=== PATIENT | male | born 1965 | race Caucasian/White ===

== ENCOUNTER 2018-04-13 10:58 | Inpatient (IN) | payer OTHER ==
[2018-04-13] MEDS ORDERED: SOD CHLORIDE 0.9% 1,000 ML IV (11:56)
[2018-04-13 12:22] LABS: ADD MAN DIFF? NO
[2018-04-13 12:24] LABS: BASOPHIL # 0.1 10^3/ul (0.0-0.1); BASOPHILS % 0.3 % (0.0-2.0); HEMATOCRIT 45.8 % (42.0-52.0); HEMOGLOBIN 14.6 g/dl (14.0-18.0); LYMPHOCYTES # 1.6 10^3/ul (0.8-2.9); LYMPHOCYTES % 8.8 % (15.0-51.0); MEAN CORPUSCULAR HEMOGLOBIN 30.7 pg (29.0-33.0); MEAN CORPUSCULAR HGB CONC 31.9 g/dl (32.0-37.0); MEAN CORPUSCULAR VOLUME 96.2 fl (82.0-101.0); MEAN PLATELET VOLUME 9.9 fl (7.4-10.4); MONOCYTE # 0.5 10^3/ul (0.3-0.9); MONOCYTES % 2.7 % (0.0-11.0); NEUTROPHIL # 15.6 10^3/ul (1.6-7.5); NEUTROPHILS % 87.8 % (39.0-77.0); PLATELET COUNT 175 10^3/UL (140-415); RED BLOOD COUNT 4.76 10^6/ul (4.70-6.10); RED CELL DISTRIBUTION WIDTH 13.2 % (11.5-14.5)
[2018-04-13 12:24] LABS: WHITE BLOOD COUNT 17.8 10^3/ul (4.8-10.8)
[2018-04-13] MEDS: ONDANSETRON 4 MG INJ IV (12:26)
[2018-04-13] MEDS: SODIUM CHLORIDE 0.9% 1L BAG IV* (12:26)
[2018-04-13 12:43] LABS: ANION GAP 9 (5-13); CARBON DIOXIDE 28 mmol/L (21-31); CHLORIDE 102 mmol/L (97-110); POTASSIUM 3.9 mmol/L (3.5-5.1); SODIUM 139 mmol/L (135-144)
[2018-04-13] MEDS: morphine 4 MG/ML VIAL IV (13:02)
[2018-04-13 13:16] LABS: ALANINE AMINOTRANSFERASE 38 IU/L (13-69); ALBUMIN 3.8 g/dl (3.3-4.9); ALBUMIN/GLOBULIN RATIO 1.02; ALKALINE PHOSPHATASE 108 IU/L (42-121); ASPARTATE AMINO TRANSFERASE 27 IU/L (15-46); BILIRUBIN,INDIRECT 1.4 mg/dl (0-1.1); BILIRUBIN,TOTAL 1.4 mg/dl (0.2-1.3); BLOOD UREA NITROGEN 10 mg/dl (7-20); CALCIUM 9.4 mg/dl (8.4-10.2); CREATININE 1.14 mg/dl (0.61-1.24); GLUCOSE 125 mg/dl (70-220); LIPASE 32 U/L (23-300); TOTAL PROTEIN 7.5 g/dl (6.1-8.1)
[2018-04-13] MEDS: KETOROLAC 15 MG INJ IV (13:34)
[2018-04-13] MEDS: ACETAMINOPHEN 325 MG TAB PO ×2 (13:34→20:12)
[2018-04-13 13:49] LABS: ADD UMIC YES; UR ASCORBIC ACID NEGATIVE (NEGATIVE); UR BACTERIA FEW /HPF (NONE SEEN); UR BILIRUBIN (Dip) NEGATIVE (NEGATIVE); UR BLOOD (Dip) 2+ mg/dL (NEGATIVE); UR CLARITY CLOUDY (CLEAR); UR COLOR AMBER (YELLOW); UR GLUCOSE (Dip) NEGATIVE (NEGATIVE); UR KETONES (Dip) TRACE mg/dL (NEGATIVE); UR LEUKOCYTE ESTERASE (Dip) 3+ Leu/ul (NEGATIVE); UR MUCUS FEW /HPF (NONE SEEN); UR NITRITE (Dip) NEGATIVE (NEGATIVE); UR RBC 44 /HPF (0-5); UR SPECIFIC GRAVITY (Dip) 1.015 (1.003-1.030); UR TOTAL PROTEIN (Dip) 2+ mg/dl (NEGATIVE); UR UROBILINOGEN (Dip) 1+ mg/dL (NEGATIVE); UR WBC > 182 /HPF (0-5)
[2018-04-13] MEDS: SOD CHLORIDE 0.9% 100 ML (13:50)
[2018-04-13] MEDS: IOHEXOL 300MG/ML 150 ML BTL (13:50)
[2018-04-13] MEDS: CEFTRIAXONE 1 GM/50 ML (PMX) 50 ML IVPB (14:30)
[2018-04-13] MEDS ORDERED: NACL 0.9% 3 ML SYG IV (15:00)
[2018-04-13] MEDS ORDERED: VANCOMYCIN IV PER PHARMACY XX (15:00)
[2018-04-13] MEDS ORDERED: ONDANSETRON 4 MG INJ IV (15:30)
[2018-04-13] MEDS ORDERED: ACETAMINOPHEN 325 MG TAB PO (15:30)
[2018-04-13] MEDS: LEVOFLOXACIN 750MG/D5W (PMX) 150 ML IVPB (15:35)
[2018-04-13] MEDS: SOD CHLORIDE 0.9% 1,000 ML IV (16:57)
[2018-04-13] MEDS: VANCOMYCIN 1.75 GM in SOD CHLORIDE 0.9% 500 ML IVPB (16:57)
[2018-04-13] MEDS: morphine 2 MG INJ IV (18:11)
[2018-04-13] MEDS: HYDROCODONE/APAP (5/325) TAB PO (20:11)
[2018-04-13] MEDS ORDERED: FAMOTIDINE 20 MG INJ IV (21:00)
[2018-04-13] MEDS ORDERED: CEFEPIME 2GM/50 ML (PMX) 50 ML IVPB (22:00)
[2018-04-14] MEDS: HYDROCODONE/APAP (5/325) TAB PO ×2 (03:06→12:20)
[2018-04-14] MEDS: VANCOMYCIN 1 GM in 250 ML IVPB (03:08)
[2018-04-14] MEDS: PANTOPRAZOLE (EC) 40 MG TAB PO (06:07)
[2018-04-14 06:11] LABS: ADD MAN DIFF? NO
[2018-04-14 06:16] LABS: BASOPHILS % 0.2 % (0.0-2.0); EOSINOPHILS % 0.1 % (0.0-7.0); HEMATOCRIT 38.2 % (42.0-52.0); HEMOGLOBIN 11.8 g/dl (14.0-18.0); LYMPHOCYTES # 1.5 10^3/ul (0.8-2.9); LYMPHOCYTES % 8.2 % (15.0-51.0); MEAN CORPUSCULAR HEMOGLOBIN 30.7 pg (29.0-33.0); MEAN CORPUSCULAR HGB CONC 30.9 g/dl (32.0-37.0); MEAN CORPUSCULAR VOLUME 99.5 fl (82.0-101.0); MEAN PLATELET VOLUME 10.2 fl (7.4-10.4); MONOCYTE # 1.3 10^3/ul (0.3-0.9); NEUTROPHIL # 15.3 10^3/ul (1.6-7.5); NEUTROPHILS % 83.7 % (39.0-77.0); PLATELET COUNT 163 10^3/UL (140-415); RED BLOOD COUNT 3.84 10^6/ul (4.70-6.10); RED CELL DISTRIBUTION WIDTH 13.7 % (11.5-14.5)
[2018-04-14 06:16] LABS: WHITE BLOOD COUNT 18.3 10^3/ul (4.8-10.8)
[2018-04-14 06:56] LABS: ALANINE AMINOTRANSFERASE 31 IU/L (13-69); ALBUMIN 2.9 g/dl (3.3-4.9); ALKALINE PHOSPHATASE 92 IU/L (42-121); ANION GAP 5 (5-13); ASPARTATE AMINO TRANSFERASE 25 IU/L (15-46); BILIRUBIN,INDIRECT 0.7 mg/dl (0-1.1); BILIRUBIN,TOTAL 0.7 mg/dl (0.2-1.3); BLOOD UREA NITROGEN 12 mg/dl (7-20); CALCIUM 8.6 mg/dl (8.4-10.2); CARBON DIOXIDE 29 mmol/L (21-31); CHLORIDE 105 mmol/L (97-110); CREATININE 1.01 mg/dl (0.61-1.24); GLUCOSE 136 mg/dl (70-220); MAGNESIUM 1.8 mg/dl (1.7-2.5); POTASSIUM 4.3 mmol/L (3.5-5.1); SODIUM 139 mmol/L (135-144); TOTAL PROTEIN 6.1 g/dl (6.1-8.1)
[2018-04-14] MEDS ORDERED: MEROPENEM 1 GM/50ML(PMX) 50 ML IVPB (10:30)
[2018-04-14] MEDS: ENOXAPARIN 40 MG/0.4 ML SYG SC (10:40)
[2018-04-14] MEDS: PHENAZOPYRIDINE 100 MG TAB PO ×3 (11:23→20:34)
[2018-04-14] MEDS: SOD CHLORIDE 0.9% 1,000 ML IV ×2 (12:26→15:33)
[2018-04-14] MEDS: MEROPENEM 1 GM/50ML(PMX) 50 ML IVPB (13:16)
[2018-04-14] MEDS: CEFTRIAXONE 1 GM/50 ML (PMX) 50 ML IVPB (14:10)
[2018-04-14] MEDS: NYSTATIN SUSP 5 ML CUP PO ×3 (14:20→20:34)
[2018-04-14] MEDS: ONDANSETRON 4 MG INJ IV (20:34)
[2018-04-14] MEDS: ACETAMINOPHEN 325 MG TAB PO (20:35)
[2018-04-15] MEDS: SOD CHLORIDE 0.9% 1,000 ML IV ×2 (04:17→15:22)
[2018-04-15 05:11] LABS: ADD MAN DIFF? NO
[2018-04-15 05:12] LABS: BASOPHILS % 0.3 % (0.0-2.0); HEMATOCRIT 35.3 % (42.0-52.0); HEMOGLOBIN 11.2 g/dl (14.0-18.0); LYMPHOCYTES # 0.6 10^3/ul (0.8-2.9); MEAN CORPUSCULAR HEMOGLOBIN 30.9 pg (29.0-33.0); MEAN CORPUSCULAR HGB CONC 31.7 g/dl (32.0-37.0); MEAN CORPUSCULAR VOLUME 97.5 fl (82.0-101.0); MEAN PLATELET VOLUME 10.4 fl (7.4-10.4); MONOCYTE # 0.5 10^3/ul (0.3-0.9); MONOCYTES % 6.1 % (0.0-11.0); NEUTROPHIL # 6.7 10^3/ul (1.6-7.5); PLATELET COUNT 144 10^3/UL (140-415); RED BLOOD COUNT 3.62 10^6/ul (4.70-6.10); RED CELL DISTRIBUTION WIDTH 13.3 % (11.5-14.5)
[2018-04-15 05:12] LABS: WHITE BLOOD COUNT 7.9 10^3/ul (4.8-10.8)
[2018-04-15 06:16] LABS: ALBUMIN 2.6 g/dl (3.3-4.9); ANION GAP 8 (5-13); BLOOD UREA NITROGEN 9 mg/dl (7-20); CALCIUM 8.5 mg/dl (8.4-10.2); CARBON DIOXIDE 23 mmol/L (21-31); CHLORIDE 106 mmol/L (97-110); CREATININE 0.84 mg/dl (0.61-1.24); GLUCOSE 126 mg/dl (70-220); MAGNESIUM 1.9 mg/dl (1.7-2.5); PHOSPHORUS 1.9 mg/dl (2.5-4.9); POTASSIUM 3.6 mmol/L (3.5-5.1); SODIUM 137 mmol/L (135-144)
[2018-04-15] MEDS: PANTOPRAZOLE (EC) 40 MG TAB PO (06:31)
[2018-04-15] MEDS: ACETAMINOPHEN 325 MG TAB PO ×2 (06:36→16:10)
[2018-04-15] MEDS: NYSTATIN SUSP 5 ML CUP PO ×4 (08:31→20:49)
[2018-04-15] MEDS: PHENAZOPYRIDINE 100 MG TAB PO ×3 (08:31→20:49)
[2018-04-15] MEDS: ENOXAPARIN 40 MG/0.4 ML SYG SC (09:09)
[2018-04-15] MEDS ORDERED: LINEZOLID 600 MG/D5W (PMX) 300 ML IVPB (10:00)
[2018-04-15] MEDS: POTASSIUM PHOSPHATE 40 MEQ in SOD CHLORIDE 0.9% 250 ML IVPB (10:00)
[2018-04-15] MEDS: ERTAPENEM SODIUM 1 GM in SOD CHLORIDE 0.9% 100 ML IVPB (11:00)
[2018-04-16] MEDS: SOD CHLORIDE 0.9% 1,000 ML IV ×3 (01:22→21:22)
[2018-04-16] MEDS: HYDROCODONE/APAP (5/325) TAB PO ×2 (03:24→14:59)
[2018-04-16 05:49] LABS: ADD MAN DIFF? NO
[2018-04-16 05:50] LABS: BASOPHILS % 0.2 % (0.0-2.0); EOSINOPHILS % 0.2 % (0.0-7.0); HEMATOCRIT 38.9 % (42.0-52.0); HEMOGLOBIN 12.2 g/dl (14.0-18.0); LYMPHOCYTES # 0.9 10^3/ul (0.8-2.9); LYMPHOCYTES % 17.6 % (15.0-51.0); MEAN CORPUSCULAR HEMOGLOBIN 30.3 pg (29.0-33.0); MEAN CORPUSCULAR HGB CONC 31.4 g/dl (32.0-37.0); MEAN CORPUSCULAR VOLUME 96.8 fl (82.0-101.0); MEAN PLATELET VOLUME 10.4 fl (7.4-10.4); MONOCYTE # 0.7 10^3/ul (0.3-0.9); MONOCYTES % 13.2 % (0.0-11.0); NEUTROPHIL # 3.4 10^3/ul (1.6-7.5); NEUTROPHILS % 67.8 % (39.0-77.0); PLATELET COUNT 171 10^3/UL (140-415); RED BLOOD COUNT 4.02 10^6/ul (4.70-6.10); RED CELL DISTRIBUTION WIDTH 13.1 % (11.5-14.5)
[2018-04-16] MEDS: PANTOPRAZOLE (EC) 40 MG TAB PO (06:30)
[2018-04-16 06:37] LABS: ALBUMIN 2.9 g/dl (3.3-4.9); ANION GAP 9 (5-13); BLOOD UREA NITROGEN 7 mg/dl (7-20); CALCIUM 8.7 mg/dl (8.4-10.2); CARBON DIOXIDE 26 mmol/L (21-31); CHLORIDE 104 mmol/L (97-110); CREATININE 0.87 mg/dl (0.61-1.24); GLUCOSE 169 mg/dl (70-220); MAGNESIUM 1.9 mg/dl (1.7-2.5); PHOSPHORUS 2.6 mg/dl (2.5-4.9); SODIUM 139 mmol/L (135-144)
[2018-04-16] MEDS: NYSTATIN SUSP 5 ML CUP PO ×4 (09:44→22:11)
[2018-04-16] MEDS: PHENAZOPYRIDINE 100 MG TAB PO ×3 (09:44→22:10)
[2018-04-16] MEDS: ENOXAPARIN 40 MG/0.4 ML SYG SC (09:54)
[2018-04-16] MEDS: ERTAPENEM SODIUM 1 GM in SOD CHLORIDE 0.9% 100 ML IVPB (11:00)
[2018-04-16] MEDS: ACETAMINOPHEN 325 MG TAB PO (12:07)
[2018-04-17] MEDS: SOD CHLORIDE 0.9% 1,000 ML IV ×4 (02:30→23:10)
[2018-04-17 05:40] LABS: ADD MAN DIFF? NO
[2018-04-17] MEDS: PANTOPRAZOLE (EC) 40 MG TAB PO (05:44)
[2018-04-17 05:51] LABS: BASOPHILS % 0.3 % (0.0-2.0); EOSINOPHILS # 0.1 10^3/ul (0.0-0.5); EOSINOPHILS % 1.5 % (0.0-7.0); HEMATOCRIT 38.8 % (42.0-52.0); HEMOGLOBIN 12.5 g/dl (14.0-18.0); LYMPHOCYTES # 1.4 10^3/ul (0.8-2.9); LYMPHOCYTES % 23.4 % (15.0-51.0); MEAN CORPUSCULAR HEMOGLOBIN 30.7 pg (29.0-33.0); MEAN CORPUSCULAR HGB CONC 32.2 g/dl (32.0-37.0); MEAN CORPUSCULAR VOLUME 95.3 fl (82.0-101.0); MEAN PLATELET VOLUME 10.1 fl (7.4-10.4); MONOCYTE # 1.1 10^3/ul (0.3-0.9); MONOCYTES % 18.3 % (0.0-11.0); NEUTROPHIL # 3.4 10^3/ul (1.6-7.5); NEUTROPHILS % 55.7 % (39.0-77.0); PLATELET COUNT 190 10^3/UL (140-415); RED BLOOD COUNT 4.07 10^6/ul (4.70-6.10); RED CELL DISTRIBUTION WIDTH 13.1 % (11.5-14.5)
[2018-04-17 05:51] LABS: WHITE BLOOD COUNT 6.1 10^3/ul (4.8-10.8)
[2018-04-17 06:04] LABS: ANION GAP 10 (5-13); BLOOD UREA NITROGEN 11 mg/dl (7-20); CALCIUM 8.9 mg/dl (8.4-10.2); CARBON DIOXIDE 25 mmol/L (21-31); CHLORIDE 104 mmol/L (97-110); CREATININE 0.73 mg/dl (0.61-1.24); GLUCOSE 127 mg/dl (70-220); MAGNESIUM 1.9 mg/dl (1.7-2.5); PHOSPHORUS 3.9 mg/dl (2.5-4.9); POTASSIUM 3.3 mmol/L (3.5-5.1); SODIUM 139 mmol/L (135-144)
[2018-04-17] MEDS: NYSTATIN SUSP 5 ML CUP PO ×4 (08:44→21:28)
[2018-04-17] MEDS: PHENAZOPYRIDINE 100 MG TAB PO ×3 (08:44→21:28)
[2018-04-17] MEDS: ENOXAPARIN 40 MG/0.4 ML SYG SC (08:50)
[2018-04-17] MEDS: POTASSIUM CHLORIDE 20 MEQ POWDER FOR ORAL SOLN PO (08:52)
[2018-04-17 10:28] LABS: HEMOGLOBIN A1C 5.6 % (0-5.9)
[2018-04-17] MEDS: ERTAPENEM SODIUM 1 GM in SOD CHLORIDE 0.9% 100 ML IVPB (11:32)
[2018-04-17] MEDS: LIDOCAINE 1% (MPF) 5 ML VIAL SC (14:25)
[2018-04-18] MEDS: SOD CHLORIDE 0.9% 1,000 ML IV (03:22)
[2018-04-18] MEDS: PANTOPRAZOLE (EC) 40 MG TAB PO (05:34)
[2018-04-18] MEDS: PHENAZOPYRIDINE 100 MG TAB PO ×3 (08:19→20:48)
[2018-04-18] MEDS: NYSTATIN SUSP 5 ML CUP PO ×4 (08:20→20:48)
[2018-04-18] MEDS: ENOXAPARIN 40 MG/0.4 ML SYG SC (08:24)
[2018-04-18 09:48] LABS: ADD MAN DIFF? NO
[2018-04-18 09:54] LABS: BASOPHILS % 0.6 % (0.0-2.0); EOSINOPHILS # 0.1 10^3/ul (0.0-0.5); EOSINOPHILS % 1.8 % (0.0-7.0); HEMATOCRIT 41.1 % (42.0-52.0); HEMOGLOBIN 13.1 g/dl (14.0-18.0); LYMPHOCYTES # 2.2 10^3/ul (0.8-2.9); LYMPHOCYTES % 33.8 % (15.0-51.0); MEAN CORPUSCULAR HEMOGLOBIN 30.2 pg (29.0-33.0); MEAN CORPUSCULAR HGB CONC 31.9 g/dl (32.0-37.0); MEAN CORPUSCULAR VOLUME 94.7 fl (82.0-101.0); MEAN PLATELET VOLUME 9.7 fl (7.4-10.4); MONOCYTE # 0.9 10^3/ul (0.3-0.9); MONOCYTES % 13.2 % (0.0-11.0); NEUTROPHIL # 3.2 10^3/ul (1.6-7.5); NEUTROPHILS % 48.6 % (39.0-77.0); PLATELET COUNT 224 10^3/UL (140-415); RED BLOOD COUNT 4.34 10^6/ul (4.70-6.10); RED CELL DISTRIBUTION WIDTH 13.2 % (11.5-14.5)
[2018-04-18 09:54] LABS: WHITE BLOOD COUNT 6.5 10^3/ul (4.8-10.8)
[2018-04-18 10:15] LABS: ALANINE AMINOTRANSFERASE 84 IU/L (13-69); ALBUMIN 3.2 g/dl (3.3-4.9); ALBUMIN/GLOBULIN RATIO 0.88; ALKALINE PHOSPHATASE 171 IU/L (42-121); ANION GAP 10 (5-13); ASPARTATE AMINO TRANSFERASE 104 IU/L (15-46); BILIRUBIN,INDIRECT 0.4 mg/dl (0-1.1); BILIRUBIN,TOTAL 0.4 mg/dl (0.2-1.3); BLOOD UREA NITROGEN 13 mg/dl (7-20); CALCIUM 9.1 mg/dl (8.4-10.2); CARBON DIOXIDE 25 mmol/L (21-31); CHLORIDE 106 mmol/L (97-110); CREATININE 0.75 mg/dl (0.61-1.24); Estimated GFR > 60 mL/min (>60); GLUCOSE 128 mg/dl (70-220); POTASSIUM 3.9 mmol/L (3.5-5.1); SODIUM 141 mmol/L (135-144); TOTAL PROTEIN 6.8 g/dl (6.1-8.1)
[2018-04-18] MEDS: ERTAPENEM SODIUM 1 GM in SOD CHLORIDE 0.9% 100 ML IVPB (10:58)
[2018-04-18] MEDS: ACETAMINOPHEN 325 MG TAB PO ×2 (11:27→15:35)
[2018-04-19] MEDS: ACETAMINOPHEN 325 MG TAB PO (06:31)
[2018-04-19] MEDS: PANTOPRAZOLE (EC) 40 MG TAB PO (06:31)
[2018-04-19 08:23] LABS: ADD MAN DIFF? NO
[2018-04-19 08:29] LABS: WHITE BLOOD COUNT 6.3 10^3/ul (4.8-10.8)
[2018-04-19 08:29] LABS: BASOPHIL # 0.1 10^3/ul (0.0-0.1); EOSINOPHILS # 0.2 10^3/ul (0.0-0.5); EOSINOPHILS % 2.7 % (0.0-7.0); HEMATOCRIT 40.3 % (42.0-52.0); HEMOGLOBIN 12.9 g/dl (14.0-18.0); LYMPHOCYTES # 2.5 10^3/ul (0.8-2.9); LYMPHOCYTES % 39.7 % (15.0-51.0); MEAN CORPUSCULAR HEMOGLOBIN 30.6 pg (29.0-33.0); MEAN CORPUSCULAR VOLUME 95.5 fl (82.0-101.0); MEAN PLATELET VOLUME 9.6 fl (7.4-10.4); MONOCYTE # 0.7 10^3/ul (0.3-0.9); MONOCYTES % 10.4 % (0.0-11.0); NEUTROPHIL # 2.7 10^3/ul (1.6-7.5); PLATELET COUNT 258 10^3/UL (140-415); POSITIVE DIFF @See below; RED BLOOD COUNT 4.22 10^6/ul (4.70-6.10); RED CELL DISTRIBUTION WIDTH 12.9 % (11.5-14.5)
[2018-04-19 08:41] LABS: ANION GAP 11 (5-13); BLOOD UREA NITROGEN 13 mg/dl (7-20); CALCIUM 9.3 mg/dl (8.4-10.2); CARBON DIOXIDE 25 mmol/L (21-31); CHLORIDE 105 mmol/L (97-110); CREATININE 0.65 mg/dl (0.61-1.24); Estimated GFR > 60 mL/min (>60); GLUCOSE 126 mg/dl (70-220); MAGNESIUM 2.1 mg/dl (1.7-2.5); PHOSPHORUS 3.9 mg/dl (2.5-4.9); SODIUM 141 mmol/L (135-144)
[2018-04-19] MEDS: NYSTATIN SUSP 5 ML CUP PO (09:17)
[2018-04-19] MEDS: ENOXAPARIN 40 MG/0.4 ML SYG SC (09:17)
[2018-04-19] MEDS: PHENAZOPYRIDINE 100 MG TAB PO (09:17)
[2018-04-19 09:55] LABS: ALANINE AMINOTRANSFERASE 98 IU/L (13-69); ALBUMIN 3.5 g/dl (3.3-4.9); ALKALINE PHOSPHATASE 159 IU/L (42-121); ASPARTATE AMINO TRANSFERASE 89 IU/L (15-46); BILIRUBIN,INDIRECT 0.4 mg/dl (0-1.1); BILIRUBIN,TOTAL 0.4 mg/dl (0.2-1.3); TOTAL PROTEIN 6.5 g/dl (6.1-8.1)
[2018-04-19] MEDS: ERTAPENEM SODIUM 1 GM in SOD CHLORIDE 0.9% 100 ML IVPB (10:30)
[2018-04-20 05:45] LABS: WHITE BLOOD COUNT 7.6 10^3/ul (4.8-10.8)
[2018-04-20 05:45] LABS: HEMATOCRIT 41.9 % (42.0-52.0); HEMOGLOBIN 13.4 g/dl (14.0-18.0); MEAN CORPUSCULAR HEMOGLOBIN 30.6 pg (29.0-33.0); MEAN CORPUSCULAR VOLUME 95.7 fl (82.0-101.0); MEAN PLATELET VOLUME 9.5 fl (7.4-10.4); PLATELET COUNT 290 10^3/UL (140-415); POSITIVE DIFF @See below; RED BLOOD COUNT 4.38 10^6/ul (4.70-6.10); RED CELL DISTRIBUTION WIDTH 13.1 % (11.5-14.5)
[2018-04-20 05:58] LABS: ADD MAN DIFF? YES
[2018-04-20] MEDS: HYDROCODONE/APAP (5/325) TAB PO (06:02)
[2018-04-20 06:08] LABS: MAGNESIUM 2.3 mg/dl (1.7-2.5)
[2018-04-20 06:13] LABS: ALANINE AMINOTRANSFERASE 97 IU/L (13-69); ALBUMIN 3.9 g/dl (3.3-4.9); ALBUMIN/GLOBULIN RATIO 1.08; ALKALINE PHOSPHATASE 155 IU/L (42-121); ANION GAP 8 (5-13); ASPARTATE AMINO TRANSFERASE 72 IU/L (15-46); BILIRUBIN,INDIRECT 0.4 mg/dl (0-1.1); BILIRUBIN,TOTAL 0.4 mg/dl (0.2-1.3); BLOOD UREA NITROGEN 17 mg/dl (7-20); CALCIUM 9.4 mg/dl (8.4-10.2); CARBON DIOXIDE 29 mmol/L (21-31); CHLORIDE 106 mmol/L (97-110); CREATININE 0.88 mg/dl (0.61-1.24); Estimated GFR > 60 mL/min (>60); GLUCOSE 117 mg/dl (70-220); POTASSIUM 4.8 mmol/L (3.5-5.1); SODIUM 143 mmol/L (135-144); TOTAL PROTEIN 7.5 g/dl (6.1-8.1)
[2018-04-20 07:31] LABS: ANISOCYTOSIS 1+ (0-0); BAND NEUTROPHILS #M 0.1 10^3/ul (0.0-0.6); BAND NEUTROPHILS % (M) 2 % (0-4); EOSINOPHILS % (M) 5 % (0-7); LYMPHOCYTES #M 3.2 10^3/ul (0.8-2.9); LYMPHOCYTES % (M) 43 % (15-51); MONOCYTE #M 0.5 10^3/ul (0.3-0.9); MONOCYTES % (M) 7 % (0-11); PLATELET ESTIMATE NORMAL; POIKILOCYTOSIS 1+ (0-0); POLYCHROMASIA 1+ (0-0); REACTIVE LYMPHOCYTES% (M) 1 % (0-0); SEG NEUT #M 3.2 10^3/ul (1.6-7.5); SEGMENTED NEUTROPHILS (M) % 42 % (39-77); SMUDGE%M 21 % (0-0)
[2018-04-20 09:07] LABS: HAAIG REFLEX REFLEX FILED
[2018-04-20] MEDS: ERTAPENEM SODIUM 1 GM in SOD CHLORIDE 0.9% 100 ML IVPB (11:26)
[2018-04-20 17:06] LABS: HEPATITIS B SURFACE ANTIGEN NEGATIVE (NEGATIVE)
[2018-04-20 17:24] LABS: HEPATITIS B CORE ANTIBODY REACTIVE (NEGATIVE); HEPATITIS C VIRAL ANTIBODY NEGATIVE (NEGATIVE)
[2018-04-21 06:15] LABS: ADD MAN DIFF? NO
[2018-04-21 06:17] LABS: WHITE BLOOD COUNT 6.9 10^3/ul (4.8-10.8)
[2018-04-21 06:17] LABS: BASOPHILS % 0.6 % (0.0-2.0); EOSINOPHILS # 0.2 10^3/ul (0.0-0.5); EOSINOPHILS % 2.3 % (0.0-7.0); HEMATOCRIT 42.7 % (42.0-52.0); HEMOGLOBIN 13.7 g/dl (14.0-18.0); LYMPHOCYTES # 2.8 10^3/ul (0.8-2.9); MEAN CORPUSCULAR HEMOGLOBIN 30.9 pg (29.0-33.0); MEAN CORPUSCULAR HGB CONC 32.1 g/dl (32.0-37.0); MEAN CORPUSCULAR VOLUME 96.2 fl (82.0-101.0); MEAN PLATELET VOLUME 9.3 fl (7.4-10.4); MONOCYTE # 0.6 10^3/ul (0.3-0.9); MONOCYTES % 8.4 % (0.0-11.0); NEUTROPHIL # 3.2 10^3/ul (1.6-7.5); NEUTROPHILS % 46.2 % (39.0-77.0); PLATELET COUNT 322 10^3/UL (140-415); RED BLOOD COUNT 4.44 10^6/ul (4.70-6.10); RED CELL DISTRIBUTION WIDTH 13.2 % (11.5-14.5)
[2018-04-21 06:41] LABS: MAGNESIUM 2.3 mg/dl (1.7-2.5)
[2018-04-21 06:53] LABS: ALANINE AMINOTRANSFERASE 85 IU/L (13-69); ALBUMIN 3.4 g/dl (3.3-4.9); ALBUMIN/GLOBULIN RATIO 0.89; ALKALINE PHOSPHATASE 145 IU/L (42-121); ANION GAP 10 (5-13); ASPARTATE AMINO TRANSFERASE 53 IU/L (15-46); BILIRUBIN,INDIRECT 0.4 mg/dl (0-1.1); BILIRUBIN,TOTAL 0.4 mg/dl (0.2-1.3); BLOOD UREA NITROGEN 15 mg/dl (7-20); CALCIUM 9.4 mg/dl (8.4-10.2); CARBON DIOXIDE 26 mmol/L (21-31); CHLORIDE 105 mmol/L (97-110); CREATININE 0.77 mg/dl (0.61-1.24); Estimated GFR > 60 mL/min (>60); GLUCOSE 122 mg/dl (70-220); POTASSIUM 4.3 mmol/L (3.5-5.1); SODIUM 141 mmol/L (135-144); TOTAL PROTEIN 7.2 g/dl (6.1-8.1)
[2018-04-21] MEDS: ERTAPENEM SODIUM 1 GM in SOD CHLORIDE 0.9% 100 ML IVPB (10:25)
== END 2018-04-21 13:59 | disposition home health service (06) | DRG 872 ==
LOC: E/R 10:58 → 2NE 04-18 12:35 → 6WM 15:05
PROC: 02HV33Z Insertion of Infusion Device into Superior Vena Cava, Percutaneous Approach (ICD-10-PCS; principal; 2018-04-17)
PROC: B548ZZA Ultrasonography of Superior Vena Cava, Guidance (ICD-10-PCS; 2018-04-17)
DX: A41.51 Sepsis due to Escherichia coli [E. coli] (principal); N39.0 Urinary tract infection, site not specified; B37.0 Candidal stomatitis; B18.1 Chronic viral hepatitis B without delta-agent; E66.01 Morbid (severe) obesity due to excess calories; K76.0 Fatty (change of) liver, not elsewhere classified; K29.70 Gastritis, unspecified, without bleeding; N41.9 Inflammatory disease of prostate, unspecified; Z68.34 Body mass index [BMI] 34.0-34.9, adult; K40.20 Bilateral inguinal hernia, without obstruction or gangrene, not specified as recurrent; K57.30 Diverticulosis of large intestine without perforation or abscess without bleeding; N40.1 Benign prostatic hyperplasia with lower urinary tract symptoms; R35.0 Frequency of micturition; K52.9 Noninfective gastroenteritis and colitis, unspecified; B96.20 Unspecified Escherichia coli [E. coli] as the cause of diseases classified elsewhere; Z90.49 Acquired absence of other specified parts of digestive tract; Z87.891 Personal history of nicotine dependence; Z98.890 Other specified postprocedural states
CPT/HCPCS: 36415; 36569; 71045; 74177; 76705; 76937; 80048; 80053; 80069; 80076; 81001; 83036; 83605; 83690; 83735; 84100; 85025; 86704; 86709; 86803; 87040; 87045; 87086; 87340; 87400; 87591; 90686; 96361; 96365; 96375; 99291-25